=== PATIENT | male | born 1970 | race Caucasian/White ===

== ENCOUNTER 2022-08-20 12:55 | Inpatient (IN) | payer OTHER ==
[2022-08-20 14:55] VITALS: BMI 26.1
[2022-08-20] MEDS ORDERED: LORazepam 1 MG TABLET PO PRN (15:13)
[2022-08-20] MEDS ORDERED: MAG HYDROX/AL HYDROX/SIMETH 30 ML UNIT-DOSE CUP PO PRN (15:13)
[2022-08-20] MEDS ORDERED: hydrOXYzine PAMOATE 25 MG CAPSULE (FP) PO PRN (15:13)
[2022-08-20] MEDS ORDERED: BENZOCAINE/MENTHOL (CHLORASEPTIC ) LOZENGE MM PRN (15:13)
[2022-08-20] MEDS ORDERED: MAGNESIUM HYDROX 2400MG/30ML ORAL SUSPENSION 30 ML CUP PO PRN (15:13)
[2022-08-20] MEDS ORDERED: ONDANSETRON *ODT* 4 MG TABLET SL PRN (15:13)
[2022-08-20] MEDS ORDERED: IBUPROFEN 400 MG TABLET (FP) PO PRN (15:13)
[2022-08-20] MEDS ORDERED: NALOXONE HCL (KLOXXADO) 8 MG SPRAY NS PRN (15:13)
[2022-08-20] MEDS ORDERED: IBUPROFEN 600 MG TABLET (FP) PO PRN (15:13)
[2022-08-20] MEDS ORDERED: DICYCLOMINE HCL 10 MG CAPSULE PO PRN (15:13)
[2022-08-20] MEDS ORDERED: POLYETHYLENE GLYCOL (HEALTHYLAX) 3350 17 GM PACKET PO PRN (15:13)
[2022-08-20] MEDS ORDERED: ACETAMINOPHEN 325 MG TABLET (FP) PO PRN ×2 (15:13)
[2022-08-20] MEDS ORDERED: LOPERAMIDE HCL 2 MG CAPSULE PO PRN (15:13)
[2022-08-20] MEDS ORDERED: NICOTINE 10 MG CARTRIDGE (INHALER) IH PRN (15:13)
[2022-08-20] MEDS ORDERED: BISMUTH SUBSALICYLATE 524 MG/30 ML PO PRN (15:13)
[2022-08-20] MEDS ORDERED: NICOTINE POLACRILEX 2 MG GUM BUC PRN (15:19)
[2022-08-20] MEDS: LORazepam 2 MG TABLET PO SCH ×3 (17:10→22:22)
[2022-08-20] MEDS ORDERED: MELATONIN 5 MG TABLETS PO SCH (22:00)
[2022-08-20] MEDS: METHOCARBAMOL 500 MG TABLET PO PRN (22:21)
[2022-08-20] MEDS: THIAMINE HCL 100 MG TABLET (FP) PO SCH (22:21)
[2022-08-21] MEDS: LORazepam 1 MG TABLET PO SCH ×4 (06:18→22:37)
[2022-08-21] MEDS: PRENATAL VITAMINS W/ FOLIC ACID TABLET (FP) PO SCH (10:16)
[2022-08-21] MEDS: NICOTINE 7 MG/24 HOURS TOPICAL PATCH TD SCH (10:17)
[2022-08-21 11:00] LABS: HEMATOCRIT 43.9 % (35.4-49); HEMOGLOBIN 14.6 GM/dL (11.7-16.9); MCH 28.7 pg (25.7-33.7); MCHC 33.2 g/dl (32.0-35.9); MEAN CELL VOLUME 86.4 fl (80-96); RBC 5.09 M/mm3 (4.00-5.60); RDW 14.8 % (11.9-15.9)
[2022-08-21 11:03] LABS: MEAN PLT VOLUME 8.8 fl (7.5-11.1); PLATELET COUNT 155 10^3/uL (134-434)
[2022-08-21 11:32] LABS: ALBUMIN 3.3 g/dl (3.4-5.0); BLOOD UREA NITROGEN 6.8 mg/dL (7-18); CALCIUM 8.7 mg/dL (8.5-10.1)
[2022-08-21 11:35] LABS: CREATININE 0.8 mg/dL (0.55-1.3)
[2022-08-21 11:37] LABS: BILIRUBIN,TOTAL 0.4 mg/dL (0.2-1); TOT PROT 6.4 g/dl (6.4-8.2)
[2022-08-21 11:45] LABS: ANISOCYTOSIS 0; MACROCYTOSIS 0
[2022-08-21] MEDS ORDERED: diphenhydrAMINE HCL 25 MG CAPSULE (FP) PO ONE (21:05)
[2022-08-21] MEDS: THIAMINE HCL 100 MG TABLET (FP) PO SCH (22:38)
[2022-08-21] MEDS: diphenhydrAMINE HCL 50 MG CAPSULE PO PRN (22:38)
[2022-08-21] MEDS: METHOCARBAMOL 500 MG TABLET PO PRN (22:39)
[2022-08-22] MEDS ORDERED: LORazepam 0.5 MG TABLET PO PRN
[2022-08-22] MEDS: LORazepam 0.5 MG TABLET PO SCH ×4 (06:15→22:01)
[2022-08-22] MEDS: PRENATAL VITAMINS W/ FOLIC ACID TABLET (FP) PO SCH (10:26)
[2022-08-22] MEDS: NICOTINE 7 MG/24 HOURS TOPICAL PATCH TD SCH (10:26)
[2022-08-22] MEDS: THIAMINE HCL 100 MG TABLET (FP) PO SCH (22:00)
[2022-08-22] MEDS: diphenhydrAMINE HCL 50 MG CAPSULE PO PRN (22:04)
[2022-08-22] MEDS ORDERED: diphenhydrAMINE HCL 25 MG CAPSULE (FP) PO ONE (22:04)
[2022-08-23] MEDS ORDERED: LORazepam 0.5 MG TABLET PO ONE (05:00)
[2022-08-23] MEDS: PRENATAL VITAMINS W/ FOLIC ACID TABLET (FP) PO SCH (10:44)
[2022-08-23] MEDS: NICOTINE 7 MG/24 HOURS TOPICAL PATCH TD SCH (10:44)
[2022-08-23 14:46] VITALS: BP 135/86; PULSE 78; RESP 16; TEMP 97
== END 2022-08-23 14:58 | disposition home or self-care (01) | DRG 774 ==
LOC: EDSEX 12:55 → YASAS 12:55 → Y3N 16:26
PROVIDERS: ADMIT Allergy & Immunology; ATTEND Family Medicine
PROC: HZ2ZZZZ Detoxification Services for Substance Abuse Treatment (ICD-10-PCS; principal; 2022-08-20)
DX: F10.230 Alcohol dependence with withdrawal, uncomplicated (principal); F14.20 Cocaine dependence, uncomplicated; F12.20 Cannabis dependence, uncomplicated; F17.210 Nicotine dependence, cigarettes, uncomplicated; F19.24 Other psychoactive substance dependence with psychoactive substance-induced mood disorder; G47.00 Insomnia, unspecified; R76.11 Nonspecific reaction to tuberculin skin test without active tuberculosis; Z56.0 Unemployment, unspecified; Z59.00 Homelessness unspecified
CPT/HCPCS: 36415; 71046-TC-FY; 80053; 85027; 86780; 93005; 93010; C9803-CS; U0003; U0005

== ENCOUNTER 2022-11-30 12:19 | Inpatient (IN) | payer OTHER ==
[2022-11-30 12:45] VITALS: BMI 24.7
[2022-11-30] MEDS ORDERED: LOPERAMIDE HCL 2 MG CAPSULE PO PRN (13:15)
[2022-11-30] MEDS ORDERED: MAG HYDROX/AL HYDROX/SIMETH 30 ML UNIT-DOSE CUP PO PRN (13:15)
[2022-11-30] MEDS ORDERED: MAGNESIUM HYDROX 2400MG/30ML ORAL SUSPENSION 30 ML CUP PO PRN (13:15)
[2022-11-30] MEDS ORDERED: POLYETHYLENE GLYCOL (HEALTHYLAX) 3350 17 GM PACKET PO PRN (13:15)
[2022-11-30] MEDS ORDERED: LORazepam 1 MG TABLET PO PRN (13:15)
[2022-11-30] MEDS ORDERED: NALOXONE HCL (KLOXXADO) 8 MG SPRAY NS PRN (13:15)
[2022-11-30] MEDS ORDERED: IBUPROFEN 600 MG TABLET (FP) PO PRN (13:15)
[2022-11-30] MEDS ORDERED: BISMUTH SUBSALICYLATE 524 MG/30 ML PO PRN (13:15)
[2022-11-30] MEDS ORDERED: IBUPROFEN 400 MG TABLET (FP) PO PRN (13:15)
[2022-11-30] MEDS ORDERED: ACETAMINOPHEN 325 MG TABLET (FP) PO PRN (13:15)
[2022-11-30] MEDS ORDERED: BENZONATATE 200 MG CAPSULE PO PRN (13:15)
[2022-11-30] MEDS ORDERED: DICYCLOMINE HCL 10 MG CAPSULE PO PRN (13:15)
[2022-11-30] MEDS ORDERED: NALOXONE HCL 0.4 MG/ML VIAL IM PRN (13:15)
[2022-11-30] MEDS ORDERED: ONDANSETRON *ODT* 4 MG TABLET SL PRN (13:15)
[2022-11-30] MEDS ORDERED: NICOTINE 10 MG CARTRIDGE (INHALER) IH PRN (13:15)
[2022-11-30] MEDS ORDERED: PRENATAL VITAMINS W/ FOLIC ACID TABLET (FP) PO ONE (15:43)
[2022-11-30] MEDS ORDERED: NICOTINE 21 MG/24 HOURS TOPICAL PATCH ONE (15:43)
[2022-11-30] MEDS: PRENATAL VITAMINS W/ FOLIC ACID TABLET (FP) PO SCH (15:48)
[2022-11-30] MEDS: NICOTINE 21 MG/24 HOURS TOPICAL PATCH TD SCH (15:48)
[2022-11-30] MEDS: guaiFENesin 600 MG TABLET.ER (FP) PO PRN ×2 (16:57→23:22)
[2022-11-30] MEDS: LORazepam 2 MG TABLET PO SCH ×2 (16:57→23:19)
[2022-11-30] MEDS: BENZOCAINE/MENTHOL (CHLORASEPTIC ) LOZENGE MM PRN (16:58)
[2022-11-30 17:05] LABS: HEMATOCRIT 41.7 % (35.4-49); MCH 28.4 pg (25.7-33.7); MCHC 33.6 g/dl (32.0-35.9); MEAN CELL VOLUME 84.7 fl (80-96); MEAN PLT VOLUME 9.1 fl (7.5-11.1); PLATELET COUNT 130 10^3/uL (134-434); RBC 4.93 M/mm3 (4.00-5.60); RDW 13.8 % (11.9-15.9); WHITE BLOOD COUNT 8.8 K/mm3 (4.0-10.0)
[2022-11-30 17:22] LABS: POTASSIUM 3.4 mmol/L (3.5-5.1)
[2022-11-30 17:31] LABS: ALBUMIN 3.4 g/dl (3.4-5.0); BLOOD UREA NITROGEN 10.1 mg/dL (7-18); CALCIUM 9.1 mg/dL (8.5-10.1)
[2022-11-30 17:34] LABS: CREATININE 0.9 mg/dL (0.55-1.3)
[2022-11-30 17:36] LABS: BILIRUBIN,TOTAL 0.3 mg/dL (0.2-1); TOT PROT 6.8 g/dl (6.4-8.2)
[2022-11-30] MEDS: THIAMINE HCL 100 MG TABLET (FP) PO SCH (23:19)
[2022-11-30] MEDS: METHOCARBAMOL 500 MG TABLET PO PRN (23:19)
[2022-11-30] MEDS: MELATONIN 5 MG TABLETS PO SCH (23:19)
[2022-12-01] MEDS: LORazepam 2 MG TABLET PO SCH ×4 (05:47→23:02)
[2022-12-01] MEDS: PRENATAL VITAMINS W/ FOLIC ACID TABLET (FP) PO SCH (10:08)
[2022-12-01] MEDS: NICOTINE 21 MG/24 HOURS TOPICAL PATCH TD SCH (10:09)
[2022-12-01] MEDS: guaiFENesin 600 MG TABLET.ER (FP) PO PRN (10:10)
[2022-12-01] MEDS: POTASSIUM CHLORIDE ORAL LIQUID 20 MEQ/15 ML PO SCH ×2 (10:11→23:01)
[2022-12-01] MEDS: LACTULOSE 20 GM/30 ML UDC (FOR ORAL USE ONLY) PO SCH ×2 (13:28→23:01)
[2022-12-01] MEDS: MELATONIN 5 MG TABLETS PO SCH (23:02)
[2022-12-01] MEDS: METHOCARBAMOL 500 MG TABLET PO PRN (23:02)
[2022-12-01] MEDS: THIAMINE HCL 100 MG TABLET (FP) PO SCH (23:02)
[2022-12-02] MEDS: LACTULOSE 20 GM/30 ML UDC (FOR ORAL USE ONLY) PO SCH ×3 (06:00→22:33)
[2022-12-02] MEDS: LORazepam 1 MG TABLET PO SCH ×4 (06:00→22:34)
[2022-12-02] MEDS: POTASSIUM CHLORIDE ORAL LIQUID 20 MEQ/15 ML PO SCH ×2 (10:09→22:35)
[2022-12-02] MEDS: PRENATAL VITAMINS W/ FOLIC ACID TABLET (FP) PO SCH (10:09)
[2022-12-02] MEDS: guaiFENesin 600 MG TABLET.ER (FP) PO PRN ×2 (10:12→22:33)
[2022-12-02] MEDS: NICOTINE 21 MG/24 HOURS TOPICAL PATCH TD SCH (10:29)
[2022-12-02] MEDS: hydrOXYzine PAMOATE 25 MG CAPSULE (FP) PO PRN (22:33)
[2022-12-02] MEDS: MELATONIN 5 MG TABLETS PO SCH (22:33)
[2022-12-02] MEDS: THIAMINE HCL 100 MG TABLET (FP) PO SCH (22:34)
[2022-12-02] MEDS: METHOCARBAMOL 500 MG TABLET PO PRN (22:34)
[2022-12-02] MEDS: BENZOCAINE/MENTHOL (CHLORASEPTIC ) LOZENGE MM PRN (22:36)
[2022-12-03] MEDS ORDERED: LORazepam 0.5 MG TABLET PO PRN
[2022-12-03] MEDS: LORazepam 0.5 MG TABLET PO SCH ×4 (06:00→22:30)
[2022-12-03] MEDS: LACTULOSE 20 GM/30 ML UDC (FOR ORAL USE ONLY) PO SCH (06:10)
[2022-12-03] MEDS: PRENATAL VITAMINS W/ FOLIC ACID TABLET (FP) PO SCH (10:27)
[2022-12-03] MEDS: NICOTINE 21 MG/24 HOURS TOPICAL PATCH TD SCH (10:28)
[2022-12-03] MEDS: MELATONIN 5 MG TABLETS PO SCH (22:29)
[2022-12-03] MEDS: hydrOXYzine PAMOATE 25 MG CAPSULE (FP) PO PRN (22:29)
[2022-12-03] MEDS: METHOCARBAMOL 500 MG TABLET PO PRN (22:29)
[2022-12-03] MEDS: THIAMINE HCL 100 MG TABLET (FP) PO SCH (22:30)
[2022-12-04] MEDS ORDERED: LORazepam 0.5 MG TABLET PO ONE (05:00)
[2022-12-04 09:23] VITALS: RESP 20
[2022-12-04] MEDS: NICOTINE 21 MG/24 HOURS TOPICAL PATCH TD SCH (10:47)
[2022-12-04] MEDS: PRENATAL VITAMINS W/ FOLIC ACID TABLET (FP) PO SCH (10:47)
[2022-12-04 13:39] VITALS: BP 105/65; PULSE 71; TEMP 97.5
== END 2022-12-04 13:34 | disposition home or self-care (01) | DRG 774 ==
LOC: YASAS 12:19 → Y3N 14:55
PROVIDERS: ADMIT Allergy & Immunology; ATTEND Surgery
PROC: HZ2ZZZZ Detoxification Services for Substance Abuse Treatment (ICD-10-PCS; principal; 2022-11-30)
DX: F10.230 Alcohol dependence with withdrawal, uncomplicated (principal); F14.20 Cocaine dependence, uncomplicated; F12.20 Cannabis dependence, uncomplicated; F17.210 Nicotine dependence, cigarettes, uncomplicated; F31.9 Bipolar disorder, unspecified; F25.0 Schizoaffective disorder, bipolar type; E87.6 Hypokalemia; G47.00 Insomnia, unspecified; R79.89 Other specified abnormal findings of blood chemistry; R76.11 Nonspecific reaction to tuberculin skin test without active tuberculosis; Z87.19 Personal history of other diseases of the digestive system
CPT/HCPCS: 36415; 80053; 82140; 85027; 86780; C9803-CS; U0003; U0005

== ENCOUNTER 2023-01-03 10:57 | Inpatient (IN) | payer OTHER ==
[2023-01-03 11:14] VITALS: BMI 27.2
[2023-01-03] MEDS ORDERED: BENZOCAINE/MENTHOL (CHLORASEPTIC ) LOZENGE MM PRN (12:14)
[2023-01-03] MEDS ORDERED: NICOTINE 10 MG CARTRIDGE (INHALER) IH PRN (12:14)
[2023-01-03] MEDS ORDERED: MAG HYDROX/AL HYDROX/SIMETH 30 ML UNIT-DOSE CUP PO PRN (12:14)
[2023-01-03] MEDS ORDERED: NALOXONE HCL (KLOXXADO) 8 MG SPRAY NS PRN (12:14)
[2023-01-03] MEDS ORDERED: METHOCARBAMOL 500 MG TABLET PO PRN (12:14)
[2023-01-03] MEDS ORDERED: MAGNESIUM HYDROX 2400MG/30ML ORAL SUSPENSION 30 ML CUP PO PRN (12:14)
[2023-01-03] MEDS ORDERED: ONDANSETRON *ODT* 4 MG TABLET SL PRN (12:14)
[2023-01-03] MEDS ORDERED: BISMUTH SUBSALICYLATE 524 MG/30 ML PO PRN (12:14)
[2023-01-03] MEDS ORDERED: hydrOXYzine PAMOATE 25 MG CAPSULE (FP) PO PRN (12:14)
[2023-01-03] MEDS ORDERED: DICYCLOMINE HCL 10 MG CAPSULE PO PRN (12:14)
[2023-01-03] MEDS ORDERED: BENZONATATE 200 MG CAPSULE PO PRN (12:14)
[2023-01-03] MEDS ORDERED: POLYETHYLENE GLYCOL (HEALTHYLAX) 3350 17 GM PACKET PO PRN (12:14)
[2023-01-03] MEDS ORDERED: NALOXONE HCL 0.4 MG/ML VIAL IM PRN (12:14)
[2023-01-03] MEDS ORDERED: LOPERAMIDE HCL 2 MG CAPSULE PO PRN (12:14)
[2023-01-03] MEDS ORDERED: chlordiazePOXIDE HCL 25 MG CAPSULE PO PRN (12:14)
[2023-01-03] MEDS ORDERED: IBUPROFEN 400 MG TABLET (FP) PO PRN (12:14)
[2023-01-03] MEDS ORDERED: guaiFENesin 600 MG TABLET.ER (FP) PO PRN (12:14)
[2023-01-03] MEDS ORDERED: diphenhydrAMINE HCL 25 MG CAPSULE (FP) PO ONE ×2 (12:18→12:34)
[2023-01-03] MEDS: chlordiazePOXIDE HCL 25 MG CAPSULE PO SCH ×2 (17:17→22:59)
[2023-01-03] MEDS: IBUPROFEN 600 MG TABLET (FP) PO PRN (17:20)
[2023-01-03] MEDS ORDERED: MELATONIN 5 MG TABLETS PO SCH (22:00)
[2023-01-03] MEDS: THIAMINE HCL 100 MG TABLET (FP) PO SCH (22:50)
[2023-01-03] MEDS: diphenhydrAMINE HCL 25 MG CAPSULE (FP) PO PRN (22:50)
[2023-01-04] MEDS: chlordiazePOXIDE HCL 25 MG CAPSULE PO SCH ×4 (06:02→22:36)
[2023-01-04] MEDS: PRENATAL VITAMINS W/ FOLIC ACID TABLET (FP) PO SCH (10:20)
[2023-01-04] MEDS: ACETAMINOPHEN 325 MG TABLET (FP) PO PRN (10:22)
[2023-01-04 12:28] LABS: POTASSIUM 4.6 mmol/L (3.5-5.1)
[2023-01-04 12:34] LABS: ALBUMIN 3.1 g/dl (3.4-5.0); CALCIUM 8.6 mg/dL (8.5-10.1)
[2023-01-04 12:35] LABS: BLOOD UREA NITROGEN 10.5 mg/dL (7-18)
[2023-01-04 12:36] LABS: CREATININE 0.8 mg/dL (0.55-1.3)
[2023-01-04 12:38] LABS: BILIRUBIN,TOTAL 0.2 mg/dL (0.2-1); TOT PROT 6.3 g/dl (6.4-8.2)
[2023-01-04 13:14] LABS: HEMATOCRIT 42.9 % (35.4-49); HEMOGLOBIN 13.8 GM/dL (11.7-16.9); MCH 27.9 pg (25.7-33.7); MCHC 32.3 g/dl (32.0-35.9); MEAN CELL VOLUME 86.5 fl (80-96); MEAN PLT VOLUME 9.7 fl (7.5-11.1); RBC 4.95 M/mm3 (4.00-5.60); RDW 14.4 % (11.9-15.9)
[2023-01-04 13:21] LABS: WHITE BLOOD COUNT 10.9 K/mm3 (4.0-10.0)
[2023-01-04] MEDS: THIAMINE HCL 100 MG TABLET (FP) PO SCH (22:30)
[2023-01-04] MEDS: diphenhydrAMINE HCL 25 MG CAPSULE (FP) PO PRN (22:30)
[2023-01-05] MEDS ORDERED: chlordiazePOXIDE HCL 25 MG CAPSULE PO SCH (05:00)
[2023-01-05] MEDS ORDERED: diazePAM 5 MG TABLET PO PRN (08:30)
[2023-01-05] MEDS: PRENATAL VITAMINS W/ FOLIC ACID TABLET (FP) PO SCH (10:11)
[2023-01-05] MEDS: diazePAM 5 MG TABLET PO SCH ×3 (10:14→22:30)
[2023-01-05] MEDS: diphenhydrAMINE HCL 25 MG CAPSULE (FP) PO PRN (22:16)
[2023-01-05] MEDS: THIAMINE HCL 100 MG TABLET (FP) PO SCH (22:17)
[2023-01-05] MEDS: IBUPROFEN 600 MG TABLET (FP) PO PRN (22:19)
[2023-01-06] MEDS ORDERED: chlordiazePOXIDE HCL 10 MG CAPSULE PO PRN
[2023-01-06] MEDS ORDERED: chlordiazePOXIDE HCL 10 MG CAPSULE PO SCH (05:00)
[2023-01-06] MEDS: diazePAM 5 MG TABLET PO SCH ×4 (05:53→22:55)
[2023-01-06] MEDS: PRENATAL VITAMINS W/ FOLIC ACID TABLET (FP) PO SCH (10:27)
[2023-01-06] MEDS: THIAMINE HCL 100 MG TABLET (FP) PO SCH (22:05)
[2023-01-06] MEDS: diphenhydrAMINE HCL 25 MG CAPSULE (FP) PO PRN (22:06)
[2023-01-07] MEDS ORDERED: chlordiazePOXIDE HCL 10 MG CAPSULE PO SCH (05:00)
[2023-01-07 05:55] VITALS: TEMP 97.5
[2023-01-07 08:56] VITALS: BP 124/88; PULSE 83; RESP 18
[2023-01-07] MEDS ORDERED: diazePAM 5 MG TABLET PO SCH (10:00)
[2023-01-07] MEDS: PRENATAL VITAMINS W/ FOLIC ACID TABLET (FP) PO SCH (10:07)
[2023-01-07] MEDS: ACETAMINOPHEN 325 MG TABLET (FP) PO PRN (10:10)
[2023-01-08] MEDS ORDERED: chlordiazePOXIDE HCL 10 MG CAPSULE PO ONE (05:00)
[2023-01-08] MEDS ORDERED: diazePAM 5 MG TABLET PO ONE (06:00)
== END 2023-01-07 14:25 | disposition home or self-care (01) | DRG 774 ==
LOC: YASAS 10:57 → Y6N 12:36
PROVIDERS: ADMIT Allergy & Immunology; ATTEND Surgery
PROC: HZ2ZZZZ Detoxification Services for Substance Abuse Treatment (ICD-10-PCS; principal; 2023-01-03)
DX: F10.230 Alcohol dependence with withdrawal, uncomplicated (principal); F14.20 Cocaine dependence, uncomplicated; F12.20 Cannabis dependence, uncomplicated; F17.210 Nicotine dependence, cigarettes, uncomplicated; F31.9 Bipolar disorder, unspecified; G47.00 Insomnia, unspecified; R76.11 Nonspecific reaction to tuberculin skin test without active tuberculosis
CPT/HCPCS: 36415; 80053; 85027; 86780; 87635; 87811

== ENCOUNTER 2023-01-23 10:43 | Inpatient (IN) | payer OTHER ==
[2023-01-23 11:09] VITALS: BMI 27.2
[2023-01-23] MEDS ORDERED: BISMUTH SUBSALICYLATE 524 MG/30 ML PO PRN (13:19)
[2023-01-23] MEDS ORDERED: LOPERAMIDE HCL 2 MG CAPSULE PO PRN (13:19)
[2023-01-23] MEDS ORDERED: ACETAMINOPHEN 325 MG TABLET (FP) PO PRN (13:19)
[2023-01-23] MEDS ORDERED: MAG HYDROX/AL HYDROX/SIMETH 30 ML UNIT-DOSE CUP PO PRN (13:19)
[2023-01-23] MEDS ORDERED: BENZOCAINE/MENTHOL (CHLORASEPTIC ) LOZENGE MM PRN (13:19)
[2023-01-23] MEDS ORDERED: guaiFENesin 600 MG TABLET.ER (FP) PO PRN (13:19)
[2023-01-23] MEDS ORDERED: METHOCARBAMOL 500 MG TABLET PO PRN (13:19)
[2023-01-23] MEDS ORDERED: NICOTINE 10 MG CARTRIDGE (INHALER) IH PRN (13:19)
[2023-01-23] MEDS ORDERED: POLYETHYLENE GLYCOL (HEALTHYLAX) 3350 17 GM PACKET PO PRN (13:19)
[2023-01-23] MEDS ORDERED: DICYCLOMINE HCL 10 MG CAPSULE PO PRN (13:19)
[2023-01-23] MEDS ORDERED: NALOXONE HCL (KLOXXADO) 8 MG SPRAY NS PRN (13:19)
[2023-01-23] MEDS ORDERED: NALOXONE HCL 0.4 MG/ML VIAL IM PRN (13:19)
[2023-01-23] MEDS ORDERED: ONDANSETRON *ODT* 4 MG TABLET SL PRN (13:19)
[2023-01-23] MEDS ORDERED: IBUPROFEN 400 MG TABLET (FP) PO PRN (13:19)
[2023-01-23] MEDS ORDERED: BENZONATATE 200 MG CAPSULE PO PRN (13:19)
[2023-01-23] MEDS ORDERED: MAGNESIUM HYDROX 2400MG/30ML ORAL SUSPENSION 30 ML CUP PO PRN (13:19)
[2023-01-23] MEDS: hydrOXYzine PAMOATE 25 MG CAPSULE (FP) PO PRN ×2 (14:29→22:25)
[2023-01-23] MEDS: IBUPROFEN 600 MG TABLET (FP) PO PRN ×2 (14:29→22:25)
[2023-01-23] MEDS ORDERED: LORATADINE 10 MG TABLET PO PRN (14:34)
[2023-01-23] MEDS ORDERED: MELATONIN 5 MG TABLETS PO SCH (22:00)
[2023-01-23] MEDS ORDERED: THIAMINE HCL 100 MG TABLET (FP) PO SCH (22:00)
[2023-01-24 06:39] VITALS: RESP 18; TEMP 97.7
[2023-01-24 09:29] VITALS: BP 112/78; PULSE 82
[2023-01-24] MEDS ORDERED: PRENATAL VITAMINS W/ FOLIC ACID TABLET (FP) PO SCH (10:00)
[2023-01-24 13:07] LABS: POTASSIUM 3.9 mmol/L (3.5-5.1)
[2023-01-24 13:09] LABS: CALCIUM 8.8 mg/dL (8.5-10.1)
[2023-01-24 13:10] LABS: BLOOD UREA NITROGEN 8.9 mg/dL (7-18); HEMATOCRIT 42.9 % (35.4-49); HEMOGLOBIN 13.8 GM/dL (11.7-16.9); MCH 28.3 pg (25.7-33.7); MCHC 32.1 g/dl (32.0-35.9); MEAN CELL VOLUME 87.9 fl (80-96); MEAN PLT VOLUME 9.5 fl (7.5-11.1); PLATELET COUNT 234 10^3/uL (134-434); RBC 4.88 M/mm3 (4.00-5.60); RDW 15.2 % (11.9-15.9); WHITE BLOOD COUNT 6.3 K/mm3 (4.0-10.0)
[2023-01-24 13:13] LABS: CREATININE 0.9 mg/dL (0.55-1.3)
[2023-01-24 13:15] LABS: BILIRUBIN,TOTAL 0.2 mg/dL (0.2-1); TOT PROT 6.1 g/dl (6.4-8.2)
== END 2023-01-24 11:26 | disposition home or self-care (01) | DRG 774 ==
LOC: YASAS 10:43 → Y3N 13:36
PROVIDERS: ADMIT Allergy & Immunology; ATTEND Surgery
PROC: HZ2ZZZZ Detoxification Services for Substance Abuse Treatment (ICD-10-PCS; principal; 2023-01-23)
DX: F10.230 Alcohol dependence with withdrawal, uncomplicated (principal); F14.20 Cocaine dependence, uncomplicated; F12.20 Cannabis dependence, uncomplicated; F17.213 Nicotine dependence, cigarettes, with withdrawal; F19.282 Other psychoactive substance dependence with psychoactive substance-induced sleep disorder; F25.9 Schizoaffective disorder, unspecified; R76.11 Nonspecific reaction to tuberculin skin test without active tuberculosis; Z87.19 Personal history of other diseases of the digestive system; Z59.01 Sheltered homelessness
CPT/HCPCS: 36415; 80053; 85027; 86780; 87635

== ENCOUNTER 2023-02-18 12:14 | Inpatient (IN) | payer OTHER ==
[2023-02-18 12:34] VITALS: BMI 25.8
[2023-02-18] MEDS ORDERED: MAG HYDROX/AL HYDROX/SIMETH 30 ML UNIT-DOSE CUP PO PRN (13:03)
[2023-02-18] MEDS ORDERED: NALOXONE HCL (KLOXXADO) 8 MG SPRAY NS PRN (13:03)
[2023-02-18] MEDS ORDERED: guaiFENesin 600 MG TABLET.ER (FP) PO PRN (13:03)
[2023-02-18] MEDS ORDERED: BENZOCAINE/MENTHOL (CHLORASEPTIC ) LOZENGE MM PRN (13:03)
[2023-02-18] MEDS ORDERED: LOPERAMIDE HCL 2 MG CAPSULE PO PRN (13:03)
[2023-02-18] MEDS ORDERED: NALOXONE HCL 0.4 MG/ML VIAL IM PRN (13:03)
[2023-02-18] MEDS ORDERED: POLYETHYLENE GLYCOL (HEALTHYLAX) 3350 17 GM PACKET PO PRN (13:03)
[2023-02-18] MEDS ORDERED: ACETAMINOPHEN 325 MG TABLET (FP) PO PRN (13:03)
[2023-02-18] MEDS ORDERED: MAGNESIUM HYDROX 2400MG/30ML ORAL SUSPENSION 30 ML CUP PO PRN (13:03)
[2023-02-18] MEDS ORDERED: COLLOIDAL OATMEAL 1 BAR EACH TP PRN (13:03)
[2023-02-18] MEDS ORDERED: BENZONATATE 200 MG CAPSULE PO PRN (13:03)
[2023-02-18] MEDS ORDERED: IBUPROFEN 400 MG TABLET (FP) PO PRN (13:03)
[2023-02-18] MEDS ORDERED: IBUPROFEN 600 MG TABLET (FP) PO PRN (13:03)
[2023-02-18] MEDS ORDERED: AMMONIUM LACTATE 12% LOTION 225 GM BOTTLE TP PRN (13:03)
[2023-02-18] MEDS ORDERED: PRENATAL VITAMINS W/ FOLIC ACID TABLET (FP) PO ONE (14:11)
[2023-02-18] MEDS: NICOTINE 14 MG/24 HOURS TOPICAL PATCH TD SCH (14:13)
[2023-02-18] MEDS: PRENATAL VITAMINS W/ FOLIC ACID TABLET (FP) PO SCH (14:14)
[2023-02-18 15:16] VITALS: RESP 18
[2023-02-18 16:49] LABS: POTASSIUM 4.4 mmol/L (3.5-5.1)
[2023-02-18 16:55] LABS: ALBUMIN 3.9 g/dl (3.4-5.0); BLOOD UREA NITROGEN 12.5 mg/dL (7-18); CALCIUM 9.3 mg/dL (8.5-10.1)
[2023-02-18 16:56] LABS: MCH 28.1 pg (25.7-33.7); MCHC 31.9 g/dl (32.0-35.9); MEAN CELL VOLUME 88.1 fl (80-96); MEAN PLT VOLUME 9.4 fl (7.5-11.1); PLATELET COUNT 188 10^3/uL (134-434); RBC 5.34 M/mm3 (4.00-5.60); RDW 14.9 % (11.9-15.9); WHITE BLOOD COUNT 8.9 K/mm3 (4.0-10.0)
[2023-02-18 16:58] LABS: CREATININE 0.9 mg/dL (0.55-1.3)
[2023-02-18 17:00] LABS: BILIRUBIN,TOTAL 0.5 mg/dL (0.2-1); TOT PROT 7.5 g/dl (6.4-8.2)
[2023-02-18] MEDS: THIAMINE HCL 100 MG TABLET (FP) PO SCH (21:25)
[2023-02-18] MEDS: MELATONIN 5 MG TABLETS PO SCH (21:25)
[2023-02-18] MEDS: hydrOXYzine PAMOATE 25 MG CAPSULE (FP) PO PRN (21:26)
[2023-02-19] MEDS: NICOTINE 14 MG/24 HOURS TOPICAL PATCH TD SCH (09:42)
[2023-02-19] MEDS: PRENATAL VITAMINS W/ FOLIC ACID TABLET (FP) PO SCH (09:42)
[2023-02-19] MEDS: THIAMINE HCL 100 MG TABLET (FP) PO SCH (21:41)
[2023-02-19] MEDS: MELATONIN 5 MG TABLETS PO SCH (21:41)
[2023-02-20] MEDS: NICOTINE 14 MG/24 HOURS TOPICAL PATCH TD SCH (09:57)
[2023-02-20] MEDS: PRENATAL VITAMINS W/ FOLIC ACID TABLET (FP) PO SCH (09:57)
[2023-02-20] MEDS: hydrOXYzine PAMOATE 25 MG CAPSULE (FP) PO PRN ×2 (09:57→21:37)
[2023-02-20] MEDS: THIAMINE HCL 100 MG TABLET (FP) PO SCH (21:37)
[2023-02-20] MEDS: MELATONIN 5 MG TABLETS PO SCH (21:38)
[2023-02-20] MEDS ORDERED: PERMETHRIN 5% TOPICAL CREAM 60 GM TUBE TP ONE (21:54)
[2023-02-21] MEDS: PRENATAL VITAMINS W/ FOLIC ACID TABLET (FP) PO SCH (09:59)
[2023-02-21] MEDS: hydrOXYzine PAMOATE 25 MG CAPSULE (FP) PO PRN (10:00)
[2023-02-21] MEDS: HYDROCORTISONE 1% TOPICAL CREAM 30 GM TUBE TP PRN ×2 (10:01→21:40)
[2023-02-21] MEDS: NICOTINE 14 MG/24 HOURS TOPICAL PATCH TD SCH (10:02)
[2023-02-21] MEDS: MELATONIN 5 MG TABLETS PO SCH (21:40)
[2023-02-21] MEDS: THIAMINE HCL 100 MG TABLET (FP) PO SCH (21:40)
[2023-02-22] MEDS: HYDROCORTISONE 1% TOPICAL CREAM 30 GM TUBE TP PRN ×2 (10:13→21:41)
[2023-02-22] MEDS: NICOTINE 14 MG/24 HOURS TOPICAL PATCH TD SCH (10:13)
[2023-02-22] MEDS: PRENATAL VITAMINS W/ FOLIC ACID TABLET (FP) PO SCH (10:13)
[2023-02-22] MEDS: hydrOXYzine PAMOATE 25 MG CAPSULE (FP) PO PRN ×2 (10:14→21:40)
[2023-02-22] MEDS: THIAMINE HCL 100 MG TABLET (FP) PO SCH (21:39)
[2023-02-22] MEDS: MELATONIN 5 MG TABLETS PO SCH (21:39)
[2023-02-23] MEDS: PRENATAL VITAMINS W/ FOLIC ACID TABLET (FP) PO SCH (10:10)
[2023-02-23] MEDS: NICOTINE 14 MG/24 HOURS TOPICAL PATCH TD SCH (10:10)
[2023-02-23] MEDS: hydrOXYzine PAMOATE 25 MG CAPSULE (FP) PO PRN ×2 (10:11→21:22)
[2023-02-23] MEDS: HYDROCORTISONE 1% TOPICAL CREAM 30 GM TUBE TP PRN ×2 (10:12→21:24)
[2023-02-23 15:35] LABS: PH,URINE 7.5 (5.0-8.0); URINE APPEARANCE CLEAR; URINE BILIRUBIN NEGATIVE (NEGATIVE); URINE COLOR YELLOW; URINE GLUCOSE (UA) NEGATIVE (NEGATIVE); URINE KETONE NEGATIVE (NEGATIVE); URINE LEUK ESTERASE NEGATIVE (NEGATIVE); URINE NITRITE NEGATIVE (NEGATIVE); URINE PROTEIN NEGATIVE (NEGATIVE); URINE UROBILINOGEN 0.2 mg/dL (0.2-1.0)
[2023-02-23] MEDS: THIAMINE HCL 100 MG TABLET (FP) PO SCH (21:21)
[2023-02-23] MEDS: MELATONIN 5 MG TABLETS PO SCH (21:21)
[2023-02-24 07:59] VITALS: PULSE 74
[2023-02-24] MEDS: NICOTINE 14 MG/24 HOURS TOPICAL PATCH TD SCH (10:07)
[2023-02-24] MEDS: PRENATAL VITAMINS W/ FOLIC ACID TABLET (FP) PO SCH (10:08)
[2023-02-24] MEDS: hydrOXYzine PAMOATE 25 MG CAPSULE (FP) PO PRN (10:08)
[2023-02-24] MEDS: HYDROCORTISONE 1% TOPICAL CREAM 30 GM TUBE TP PRN ×2 (10:09→21:41)
[2023-02-24] MEDS: BACITRACIN/POLYMYXIN B SULFATE 15 GM TUBE TP SCH (11:47)
[2023-02-24] MEDS: MELATONIN 5 MG TABLETS PO SCH (21:39)
[2023-02-24] MEDS: THIAMINE HCL 100 MG TABLET (FP) PO SCH (21:40)
[2023-02-25] MEDS: PRENATAL VITAMINS W/ FOLIC ACID TABLET (FP) PO SCH (10:10)
[2023-02-25] MEDS: NICOTINE 14 MG/24 HOURS TOPICAL PATCH TD SCH (10:10)
[2023-02-25] MEDS: hydrOXYzine PAMOATE 25 MG CAPSULE (FP) PO PRN (10:11)
[2023-02-25] MEDS: BACITRACIN/POLYMYXIN B SULFATE 15 GM TUBE TP SCH (10:12)
[2023-02-25] MEDS: MELATONIN 5 MG TABLETS PO SCH (21:47)
[2023-02-25] MEDS: THIAMINE HCL 100 MG TABLET (FP) PO SCH (21:48)
[2023-02-26 07:16] VITALS: BP 107/74; TEMP 97.6
== END 2023-02-26 09:16 | disposition home or self-care (01) | DRG 772 ==
LOC: YASAS 12:14 → Y5N 14:48
PROVIDERS: ADMIT Allergy & Immunology; ATTEND Psychiatry & Neurology Pain Medicine
PROC: HZ42ZZZ Group Counseling for Substance Abuse Treatment, Cognitive-Behavioral (ICD-10-PCS; principal; 2023-02-18)
DX: F10.20 Alcohol dependence, uncomplicated (principal); F14.20 Cocaine dependence, uncomplicated; F12.20 Cannabis dependence, uncomplicated; F17.210 Nicotine dependence, cigarettes, uncomplicated; F19.282 Other psychoactive substance dependence with psychoactive substance-induced sleep disorder; F19.24 Other psychoactive substance dependence with psychoactive substance-induced mood disorder; F31.9 Bipolar disorder, unspecified; J30.2 Other seasonal allergic rhinitis; B85.0 Pediculosis due to Pediculus humanus capitis; L29.8 Other pruritus; R76.11 Nonspecific reaction to tuberculin skin test without active tuberculosis; Z59.01 Sheltered homelessness
CPT/HCPCS: 36415; 71046-TC-FY; 80053; 81003; 85027; 86780; 87635; 87811

== ENCOUNTER 2023-06-27 10:31 | Inpatient (IN) | payer OTHER ==
[2023-06-27 11:05] VITALS: BMI 27.6
[2023-06-27] MEDS ORDERED: NALOXONE HCL 0.4 MG/ML VIAL IM PRN (13:24)
[2023-06-27] MEDS ORDERED: BENZOCAINE/MENTHOL (CHLORASEPTIC ) LOZENGE MM PRN (13:24)
[2023-06-27] MEDS ORDERED: guaiFENesin 600 MG TABLET.ER (FP) PO PRN (13:24)
[2023-06-27] MEDS ORDERED: ONDANSETRON *ODT* 4 MG TABLET SL PRN (13:24)
[2023-06-27] MEDS ORDERED: DICYCLOMINE HCL 10 MG CAPSULE PO PRN (13:24)
[2023-06-27] MEDS ORDERED: POLYETHYLENE GLYCOL (HEALTHYLAX) 3350 17 GM PACKET PO PRN (13:24)
[2023-06-27] MEDS ORDERED: NALOXONE HCL (KLOXXADO) 8 MG SPRAY NS PRN (13:24)
[2023-06-27] MEDS ORDERED: MAG HYDROX/AL HYDROX/SIMETH 30 ML UNIT-DOSE CUP PO PRN (13:24)
[2023-06-27] MEDS ORDERED: MAGNESIUM HYDROX 2400MG/30ML ORAL SUSPENSION 30 ML CUP PO PRN (13:24)
[2023-06-27] MEDS ORDERED: BENZONATATE 200 MG CAPSULE PO PRN (13:24)
[2023-06-27] MEDS ORDERED: LOPERAMIDE HCL 2 MG CAPSULE PO PRN (13:24)
[2023-06-27] MEDS: IBUPROFEN 600 MG TABLET (FP) PO PRN (17:01)
[2023-06-27] MEDS: THIAMINE HCL 100 MG TABLET (FP) PO SCH (22:24)
[2023-06-27] MEDS: hydrOXYzine PAMOATE 25 MG CAPSULE (FP) PO PRN (22:24)
[2023-06-27] MEDS: METHOCARBAMOL 500 MG TABLET PO PRN (22:24)
[2023-06-27] MEDS: MELATONIN 5 MG TABLETS PO SCH (22:25)
[2023-06-28] MEDS ORDERED: diazePAM 5 MG TABLET PO PRN (08:29)
[2023-06-28] MEDS: PRENATAL VITAMINS W/ FOLIC ACID TABLET (FP) PO SCH (10:21)
[2023-06-28] MEDS: diazePAM 5 MG TABLET PO SCH (10:25)
[2023-06-28 10:53] LABS: HEMATOCRIT 42.9 % (35.4-49); MCH 28.3 pg (25.7-33.7); MCHC 32.6 g/dl (32.0-35.9); MEAN CELL VOLUME 86.8 fl (80-96); MEAN PLT VOLUME 8.9 fl (7.5-11.1); PLATELET COUNT 204 10^3/uL (134-434); RBC 4.94 M/mm3 (4.00-5.60); WHITE BLOOD COUNT 6.9 K/mm3 (4.0-10.0)
[2023-06-28 11:06] LABS: CHLORIDE 110 mmol/L (98-107); POTASSIUM 4.2 mmol/L (3.5-5.1); SODIUM 143 mmol/L (136-145)
[2023-06-28 11:12] LABS: ALBUMIN 3.1 g/dl (3.4-5.0); ANION GAP 5 mmol/L (4-13); CALCIUM 8.3 mg/dL (8.5-10.1); CO2 28 mmol/L (21-32); GLUCOSE,RANDOM 84 mg/dL (74-106)
[2023-06-28 11:13] LABS: BLOOD UREA NITROGEN 12.9 mg/dL (7-18)
[2023-06-28 11:15] LABS: CREATININE 0.9 mg/dL (0.55-1.3)
[2023-06-28 11:16] LABS: SGOT/AST 33 U/L (15-37)
[2023-06-28 11:17] LABS: BILIRUBIN,TOTAL 0.3 mg/dL (0.2-1); SGPT/ALT 67 U/L (13-61); TOT PROT 6.1 g/dl (6.4-8.2)
[2023-06-28 11:18] LABS: ALK PHOS 89 U/L (45-117)
[2023-06-28] MEDS: ACETAMINOPHEN 325 MG TABLET (FP) PO PRN (17:06)
[2023-06-29] MEDS: IBUPROFEN 400 MG TABLET (FP) PO PRN (17:33)
[2023-06-29] MEDS: BISMUTH SUBSALICYLATE 524 MG/30 ML PO PRN (22:34)
[2023-06-30] MEDS: diazePAM 5 MG TABLET PO SCH (06:01)
[2023-07-01] MEDS: diazePAM 5 MG TABLET PO SCH (07:15)
[2023-07-01 21:33] VITALS: BP 111/65; PULSE 67; RESP 16; TEMP 97.7
[2023-07-02] MEDS: diazePAM 5 MG TABLET PO ONE (05:55)
== END 2023-07-02 10:30 | disposition home or self-care (01) | DRG 774 ==
LOC: YASAS 10:31 → Y6N 15:39
PROVIDERS: ADMIT Allergy & Immunology; ATTEND Surgery
PROC: HZ2ZZZZ Detoxification Services for Substance Abuse Treatment (ICD-10-PCS; principal; 2023-06-27)
DX: F10.230 Alcohol dependence with withdrawal, uncomplicated (principal); F14.20 Cocaine dependence, uncomplicated; F12.20 Cannabis dependence, uncomplicated; F17.210 Nicotine dependence, cigarettes, uncomplicated; F19.282 Other psychoactive substance dependence with psychoactive substance-induced sleep disorder; F25.9 Schizoaffective disorder, unspecified; F19.24 Other psychoactive substance dependence with psychoactive substance-induced mood disorder; K70.30 Alcoholic cirrhosis of liver without ascites
CPT/HCPCS: 36415; 80053; 80307; 85027; 86780; 87635